=== PATIENT | female | born 1935 | race Caucasian/White ===

== ENCOUNTER 2022-06-24 09:18 | Observation (INO) | payer MEDICARE, OTHER ==
[~2022-06-24] VITALS: Ht 154.9 cm; Wt 52.1 kg
[~2022-06-24 09:18] MED LIST: CELECOXIB100 MG PO; HYDROCODON-ACE1 EA10 PO; LISINOPRIL40 MG PO; POTASSIUM CHLO20 ME2 PO; PRAVASTATIN SOD10 MG PO
--- OUTSIDE RECORDS SUMMARY | 2022-06-24 09:22 | XMS ---
PreManage Notification: SANKET BLAKE Security Nuclear Medicine Officer Events No recent Security Events currently on file CRITERIA MET - [facility] - 2 Visits in 30 Days CARE PROVIDERS IVONNE VILA Casting Machine Set Up Operator Current KENDY MAE Ramila PHONE: [phone] PATRICIA SHAH Internal Medicine Current PHONE: [phone] GAEL BARRIGA Nurse Practitioner: Family Current PHONE: Unknown NETTIE CARRERA Internal Medicine Current PHONE: [phone] ROSIE SZYMANSKI Physician Waistband Setter Lockstitch Current PHONE: [phone] MILI PAN I. Physician Waistband Setter Lockstitch Current PHONE: Unknown DARIO MEZA Nurse Practitioner Current PHONE: Unknown SEBASTIAN MADRIGAL Nurse Practitioner Jarek PERALTA PHONE: [phone] RACHEL [facility] Current PHONE: Unknown [facility] PHONE: [phone] YURIY MAYNARD Physician Waistband Setter Lockstitch Current PHONE: Unknown Fariba has no Care Guidelines for this patient. EJayson VISIT COUNT (12 MO.) 1 [facility] 2 JEREM[facility]AS [facility] TOTAL 3 NOTE: Visits indicate total known visits. ED/UCC VISIT TRACKING (12 MO.) 06/24/2022 09:19 [facility] [place] TYPE: Emergency COMPLAINT: - WEAK, CONFUSION, SHAKY, NO APPETITE 06/06/2022 17:37 [facility] [place] TYPE: Emergency COMPLAINT: - BACK PAIN DIAGNOSES: - Other fpc (current) drug therapy - Unspecified fall, initial encounter - Low back pain, unspecified 02/19/2022 17:38 [facility] Priti RIVERA TYPE: Emergency DIAGNOSES: - Abnormal Lab - Repeated falls - Low Sodium - Urinary tract infection, site not specified - Hypo-osmolality and hyponatremia INPATIENT VISIT TRACKING (12 MO.) [facility] Medical [facility] DIAGNOSES: - Repeated falls - Urinary tract infection, site not specified - Hypo-osmolality and hyponatremia - Acute cystitis without hematuria [email or web address]
[2022-06-24] MEDS ORDERED: DILTIAZEM HCL30 MG PO (12:08)
[2022-06-24] MEDS ORDERED: PRAVASTATIN SOD10 MG PO (15:20)
[2022-06-24] MEDS ORDERED: OXYBUTYNIN CHLOR5 MG PO (15:21)
[2022-06-24] MEDS ORDERED: DICLOFENAC SOD100 G1 TOP (15:23)
[2022-06-24] MEDS ORDERED: LIDOCAINE5 GM TOP (15:26)
[2022-06-24] MEDS ORDERED: CLEARLAX119 GM PO (15:27)
--- NOTE | 2022-06-24 16:00 | NUR ---
86 YR OLD FEMALE PATIENT ADMITTED TO CCU VIA STRETCHER UNDER DR. SPRAGUE WITH DX OF HYPERKALEMIA, WEAKNESS, DIZZINESS. PATIENT HAS HAD INCREASED DIZZINESS OVER THE PAST 2 WEEKS. REPORT RECIEVED FROM MEERA KOROMA IN ER. UPON ADMIT TO CCU PATIENT IS ALERT, IS AWARE OF PERSON, PLACE, TIME. DENIES PAIN. HOWEVER DOES HAVE A HX OF CHRONIC BACK PAIN. IVF HUNG AT 100 ML/HR. LAB HERE TO DRAW BMP. ADMISSION PROCESS STARTED.
--- NOTE | 2022-06-24 17:30 | NUR ---
inc of urine. attends changed. MOVES WELL IN BED.
--- NOTE | 2022-06-24 17:55 | NUR ---
SITTING UP IN BED TO TAKE DINNER, REFUSING DINNER, TAKING ENSURE.
--- NOTE | 2022-06-24 18:20 | NUR ---
LOPRESSOR 2.5 MG IV GIVEN HR 150 UPON GET UP TO COMMODE.
--- NOTE | 2022-06-24 19:16 | NUR ---
SLEEPING, REPORT TO NEXT SHIFT. IVF INFUSING AT 100 ML/HR.
--- NOTE | 2022-06-24 19:23 | EKG ---
[facility] [address] [place], [place] [address] Signed Sinus tachycardia Left axis deviation Inferior infarct , age undetermined Abnormal ECG No previous ECGs available Confirmed by JOHANNA SPRAGUE MD ([id number]) on 06/24/2022 7:23:42 PM Electronically Signed By: JOHANNA SPRAGUE MD 06/24/221922 PATIENT NAME: SANKET BLAKE Electrocardiogram DATE OF : 37 PHYSICIAN: JOHANNA SPRAGUE MD REPORT #: [id number] REPORT IS CONFIDENTIAL AND NOT TO BE RELEASED WITHOUT AUTHORIZATION
--- NOTE | 2022-06-24 19:45 | NUR ---
PT ASSESSED AND FOUND TO BE SLEEPING. PT AWAKENED, IS ALERT AND ORIENTED X 4 WITH A GCS OF 15. PT ABLE TO MOVES ALL EXTREMITIES WITH PURPOSE. CMS INTACT X 4. SAFETY CHECK PERFORMED AND ALARM LIMITS SET. PT WITH NO COMPLAINTS OR CONCERNS AT THIS TIME. NURSE CALL LIGHT PLACED ON PTS BEDSIDE.
--- NOTE | 2022-06-25 07:01 | NUR ---
PT REMAINS AWAKE, ALERT AND ORIENTED WITH SOME GENERALIZED FORGETFULLNESS. PT HAS BEEN IN A NSR TO ST, NORMORTENSIVE AND A-FEBRILE. PT INCONTENENT OF URINE AND FECES MULTIPLE TIMES THROUGHOUT THE NIGHT. PT CLEANED WITH CHG WIPES AND PLACED IN NEW LENINS. LABS: K NORMALIZED AT 5. CREATNINE IMPROVED TO .87.
--- NOTE | 2022-06-25 07:30 | NUR ---
REPORT RECIEVED FROM SET AND EXHIBIT DESIGNER RN. PATIENT RESTING IN BED AT THIS TIME. PRE REPROT PATIENT HAD A GOOD NIGHT OVERALL. PATIENTS POTASSIUM LEVELS CAME DOWN THIS MORNING WITH TREATMENT. WILL CONTINUE TO CLOSELY MONITOR.
--- NOTE | 2022-06-25 08:08 | NUR ---
CALL LIGHT ANSWERED, PATIENT IS INCONTINENT OF URINE AND LIQUID STOOL. PURE WICK REMOVED IT WAS NOT REALLY WORKING PROPERLY WITH THIS PATIENT. NEW BRIEF AND CHUK PROVIDED, PATIENT IVÁN AREA VERY PAINFUL, RN AND STUDENT AWARE. PATIENT NOW SITTING UP FOR BREAKFAST. CALL LIGHT IN EASY REACH
--- NOTE | 2022-06-25 09:03 | NUR ---
THIS RN AND STUDENT RN IN TO DO MORNING ASSESSMENT AND GIVE AM MEDICATIONS. PATIENT REPOSITIONED IN BED WITH PILLOW SUPPORT. PATIENT HAS A DECREASED APPETITE. PATIENT SWOLLOWED MEDICATION OKAY THIS AM. PLAN OF CARE REVIEWED WITH MD SPRAGUE. PATIENT IS OVERALL BETTER AND WILL TRANSFER TO THE MEDICAL UNIT. PATIENT REMIANS VERY WEAK AND WILL NEED PHYSICAL THERAPY TODAY TO TREAT AND EVAL. PATIENTS DAUGHTER IN THE ROOM AND UPDATED ON PLAN OF CARE. PER PATIENTS DAUGHTER SHE FEELS SHE IS UNSAFE TO GO HOME AND HAD QUESTIONS ABOUT REHAB. CASE MANAGEMENT NOTIFIED. WILL CONTINUE TO CLOSELY MONTIOR.
--- NOTE | 2022-06-25 10:35 | NUR ---
INTO PATIENT ROOM WITH JAMIE KOROMA. PATIENT WORKING WITH PT TO GET UP TO THE CHAIR. PATIENT DAUGHTER VESTA AT BEDSIDE. VESTA REQUESTING REFERRAL SENT TO [facility] FOR PT PLACEMENT THE PATIENT HAS BEEN THERE IN THE PAST. CURRENTLY THE PATIENT IS LIVING IN A [place]UP[place] APARTMENT. HER GRANDDAUGHTER WILVER LIVE IN THE OTHER SIDE OF THE DUPLEX. VESTA STATES THAT OVER THE PAST FEW MONTHS THE PATIENT HAS BECOME DECONDITIONED AND IS REQUIRING MORE CARE. PATIENT GRANDDAUGHTER WILL BE AVAILABLE TO CARE FOR HER AFTER DISCHARGE FROM A SNF WHEN DISCHARGED. PATIENT HAS WALKER AND WC AT HOME. PATIENT DAUGHTER DECLINES HOUSING OR FINANCIAL NEEDS FOR THE PATIENT AT THIS TIME. DISCUSSED THAT WE WILL SEND CHART TO LAY @ [facility] FOR REVIEW. CHART FAXED.
--- NOTE | 2022-06-25 11:10 | NUR ---
REPORT GIVEN TO LUIS A KOROMA AT THE BEDSIDE. NEW IV STARTED PRIOR TO PATIENT TRANSFER. PATIENT TOLERATED WELL. PATIENT TRANSFERED IN HER CHAIR AND TOLERATED WELL. NO OTHER QUESTIONS AT THIS TIME.
--- NOTE | 2022-06-25 11:15 | NUR ---
PT. ARRIVED VIA CHAIR AND REPORT RECIEVED AT BEDSIDE. RN STATES PT. IS SOILED AND TO CHANGE HER. PT. FOUND TO HAVE AN OPEN STAGE 2 PRESSURE INJURY ON COCCYX THAT IS NOT DRESSED. AREA CLEANSED AND ALLEVYN APPLIED. IVÁN AREA IS REDDENED AND AND BARRIER CREAM APPLIED. PT C/O DIZZINESS AND BEING SHAKY WITH SITTING UP. VITALS STABLE AND BLOOD GLUCOSE WAS 103. MD UPDATED. WILL CONTINUE TO MONITOR. DISCUSSED SAFETY, POC AND CALL LIGHT. DIET ORDER CHANGED AND LACTOSE INTOLERANT ADDED PER PT. REQUEST.
--- NOTE | 2022-06-25 12:20 | NUR ---
ROUNDING ON PT. SHE STATES SHE IS NOT HUNGRY FOR LUNCH. BROUGHT CLEAR ENSURE AND PUDDING. DENIES FURTHER NEEDS. LEFT WITH CALL LIGHT IN REACH.
--- NOTE | 2022-06-25 13:25 | NUR ---
ROUNDING ON PT. SHE DENIES PAIN OR DIZZINESS. ADMIN MED. DAUGHTER AT BEDSIDE. BROUGHT ENSURE AND WATER. CALL LIGHT IN REACH.
--- NOTE | 2022-06-25 14:30 | NUR ---
PT. HAS AN INCONTINENT LOOSE BM. 2PA WITH FWW TO BED. PT. CLEANED AND CHANGED. NEW ALLEVYN APPLIED TO COCCYX AREA. ASSESSMENT COMPLETED. BROUGHT ICE. CALL LIGHT IN REACH.
[2022-06-25] MEDS ORDERED: 8HR ARTHRITIS650 M1 PO (15:36)
[2022-06-25] MEDS ORDERED: HYDROCODON-ACE1 EA10 PO (15:36)
[2022-06-25] MEDS ORDERED: SODIUM CHLORI1000 MG PO (15:37)
[2022-06-25] MEDS ORDERED: CALCIUM500 MG PO (15:38)
--- NOTE | 2022-06-25 15:41 | NUR ---
MED REC COMPLETE
--- NOTE | 2022-06-25 18:31 | NUR ---
PT. IN BED WITH EYES CLOSED. AWAKENS EASILY TO VOICE. POOR APPETITE. VITALS TAKEN. LEFT RESTING WITH CALL LIGHT IN REACH.
--- NOTE | 2022-06-25 19:20 | NUR ---
Received bedside report from offgoing shift, hourly rounding initiated
--- NOTE | 2022-06-25 20:31 | NUR ---
In pt room for rounding. pt resting on back, eyes closed, breathing even and unlabored, no indication of pain or discomfort, call light in reach.
--- NOTE | 2022-06-25 22:19 | NUR ---
IN PT ROOM FOR ROUNDING. PT RESTING ON BACK, EYES CLOSED, CALL LIGHT IN REACH, NO COMPLAINT OR INDICATION OF PAIN OR DISCOMFORT.
--- NOTE | 2022-06-26 | NUR ---
In pt room for rounding. Pt resting on back, eyes closed, breathing even and unlabored, call light in reach
--- NOTE | 2022-06-26 02:12 | NUR ---
In pt room for rounding. Pt resting on back, eyes closed, breathing even and unlabored, call light in reach, no complaint of pain or discomfort.
--- NOTE | 2022-06-26 03:44 | NUR ---
IN pt room for rounding, checked pt brief and changed. Pt had no complaint of pain or discomfort, call light in reach.
--- NOTE | 2022-06-26 05:47 | NUR ---
IN pt room for rounding. Pt resting on back, eyes closed, breathing even and unlabored, call light in reach no complaint of pain or discomfort
--- NOTE | 2022-06-26 08:30 | NUR ---
REPORT RECEIVED FROM NIGHT RN AND PT. CARE RESUMED. PT. IS ALERT AND ORIENTED TO ALL. SHE REPORTS MILD TENDERNESS IN LOWER ABDOMEN WITH PALPATION. REFUSES BREAKFAST BUT DRINKING CLEAR ENSURE. ASSESSMENT COMPLETED. BREA IN THE ROOM. PT. AMBULATED WITH FWW AND 1PA TO CHAIR. DISCUSSED POC AND MEDS. LEFT RESTING WITH CALL LIGHT IN REACH.
--- NOTE | 2022-06-26 08:55 | NUR ---
PER LAY AT [facility] PATIENT ACCEPTED TO SNF. THEY WOULD LIKE PATIENT TO ARRIVE PRIOR TO 1300.
[2022-06-26] MEDS ORDERED: CEPHALEXIN250 MG PO (09:18)
[2022-06-26] MEDS ORDERED: HYDROCODON-ACE1 EA10 PO (09:23)
--- NOTE | 2022-06-26 10:14 | NUR ---
UPDATED FAMILY THAT [facility] HAS A BED OPEN.PATIENT WILL BE ABLE TO GO TO [facility] AT 1300 TODAY BY WHEELCHAIR VAN. PATIENT AND FAMILY HAPPY ABOUT PLACEMENT AT [facility].
--- NOTE | 2022-06-26 12:00 | NUR ---
PT. ASSISTED WITH REPOSITIONING WITH PILLOWS. MEDS ADMIN. SHE REFUSES LUNCH AND GIVEN ENSURE. CALL LIGHT IN REACH.
--- NOTE | 2022-06-26 12:37 | NUR ---
IV REMOVED WNL AND CATH INTACT. PER VERBAL ORDER TELEMETRY REMOVED AND PT. DRESSED. BRIEF DRY. AWAITING TRANSPORT. REPORT CALLED TO FACILITY.
== END 2022-06-26 12:53 ==
LOC: ED 09:18 → CCU 09:20 → MS 06-25 11:00
PROVIDERS: ADMIT Internal Medicine; ATTEND Internal Medicine
DX: E87.5 Hyperkalemia (principal); N39.0 Urinary tract infection, site not specified; G89.29 Other chronic pain; M54.9 Dorsalgia, unspecified; R42 Dizziness and giddiness; I48.0 Paroxysmal atrial fibrillation; I10 Essential (primary) hypertension; E78.5 Hyperlipidemia, unspecified; Z20.822 Contact with and (suspected) exposure to COVID-19
CPT/HCPCS: 36415; 80048; 80053; 81001; 83735; 84484; 85025; 87077; 87088; 87186; 87502; 93005; 93010; 96374; 96376; 97162; A9270; C9803; G0378; J0696; J1815; J7030; U0003

== ENCOUNTER 2024-09-11 11:01 | Emergency (ER) | payer MEDICARE, OTHER ==
[~2024-09-11] VITALS: Ht 154.9 cm; Wt 64.7 kg
[~2024-09-11 11:01] MED LIST changes: +8HR ARTHRITIS650 M1 PO; +ACIDOPHILUS1 EACH PO; +AMOX TR-K CLV1 EACH PO; +AZITHROMYCIN250 MG PO; +CALCIUM500 MG PO; +CEPHALEXIN250 MG PO; +CLEARLAX119 GM PO; +DICLOFENAC SOD100 G1 TOP; +DILTIAZEM HCL30 MG PO; +IMODIUM A-D2 M2 PO; +LIDOCAINE5 GM TOP; +MEMANTINE HCL10 MG PO; +MIRTAZAPINE7.5 MG PO; +OXYBUTYNIN CHLOR5 MG PO; +SODIUM CHLORI1000 MG PO
[2024-09-11 11:22] LABS: BASOPHILS 0.4 % (0-2); EOSINOPHILS 0.4 % (0-6); HEMATOCRIT 40.3 % (35.0-50.0); HEMOGLOBIN 13.9 g/dL (12.0-18.0); LYMPHOCYTES 20.5 % (24-44); MCH 31.3 (27-36); MCHC 34.5 g/dl (30-36); MCV 90.6 fl (81-99); MONOCYTES 9.8 % (0-12); NEUTROPHILS 68.9 % (39-80); PLATELET COUNT 331 K/uL (140-440); RBC 4.45 M/ul (4.3-5.7)
[2024-09-11 11:41] LABS: ALBUMIN 3.5 g/dL (3.4-5.0); ALBUMIN/GLOBULIN RATIO 0.8 (1.1-2.4); ANION GAP 17.8 (7-21); BILIRUBIN, TOTAL 1.6 mg/dL (0.2-1.0); BUN/CREATININE RATIO 20.98 (6.0-28.6); CALCIUM 9.4 mg/dL (8.5-10.1); CREATININE, SERUM 0.81 mg/dL (0.55-1.02); POTASSIUM 3.8 mmol/L (3.5-5.1); PROTEIN, TOTAL 7.9 g/dL (6.4-8.2)
[2024-09-11] MEDS ORDERED: HYDROCODONE/ACETA 5/325 TAB PO ONE (13:00)
[2024-09-11 14:14] LABS: BILIRUBIN, URINE NEGATIVE (negative); BLOOD/HGB, URINE TRACE-I (Negative); KETONE, URINE SMALL (Negative); LEUK ESTERASE, URINE LARGE (negative); NITRITE, URINE POSITIVE (negative)
[2024-09-11 14:20] LABS: RED BLOOD CELLS, URINE 0-1 /hpf (0-5)
[2024-09-11 14:21] LABS: CASTS, URINE NONE SEEN \\lpf; COLLECTION TYPE, URINE CLEAN CATCH; EPITHELIAL CELLS, URINE SQUAMOUS 3+ /lpf (0-1+); REFLEX CULTURE, URINE No (No)
[2024-09-11 14:22] LABS: CRYSTALS, URINE TRIPLE PHOSPHATE 2+ (0-1+)
[2024-09-11 14:23] LABS: BACTERIA, URINE 3+ /hpf (negative)
[2024-09-11 14:48] LABS: AMPHETAMINES, URINE NEGATIVE (NEGATIVE); BARBITURATES, URINE NEGATIVE (NEGATIVE); BENZODIAZEPINE, URINE NEGATIVE (NEGATIVE); BUPRENORPHINE, URINE NEGATIVE (NEGATIVE); CANNABINOID, URINE NEGATIVE (NEGATIVE); COCAINE, URINE NEGATIVE (NEGATIVE); ECSTASY, URINE NEGATIVE (NEGATIVE); FENTANYL, URINE NEGATIVE (NEGATIVE); METHADONE, URINE NEGATIVE (NEGATIVE); OPIATES, URINE POSITIVE (NEGATIVE); OXYCODONE, URINE NEGATIVE (NEGATIVE); PHENCYCLIDINE, URINE NEGATIVE (NEGATIVE)
[2024-09-11 15:51] VITALS: BP 132/62
--- NOTE | 2024-09-11 17:50 | EKG ---
[facility] [address] [place] [place] [id number] Signed Sinus bradycardia with sinus arrhythmia Left axis deviation Minimal voltage criteria for LVH, may be normal variant ( Johnathan product ) Abnormal ECG When compared with ECG of 10-NOV-2023 13:28, premature supraventricular complexes are no longer present Vent. rate has decreased BY 32 BPM Confirmed by Bulmaro Wayne DO ([id number]) on 09/11/2024 5:50:29 PM Electronically Signed By: BULMARO WAYNE DO 09/11/24 1750 PATIENT NAME: SANKET BLAKE Electrocardiogram DATE OF : 37 PHYSICIAN: BULMARO WAYNE DO REPORT #: [id number] REPORT IS CONFIDENTIAL AND NOT TO BE RELEASED WITHOUT AUTHORIZATION
== END 2024-09-11 15:52 | disposition home or self-care (01) ==
LOC: ED 11:01
PROVIDERS: Emergency Medicine
DX: N39.0 Urinary tract infection, site not specified (principal); M19.031 Primary osteoarthritis, right wrist; I10 Essential (primary) hypertension; I48.91 Unspecified atrial fibrillation; Z96.0 Presence of urogenital implants; Z79.899 Other long term (current) drug therapy
CPT/HCPCS: 36415; 71045; 73110; 80053; 80307; 81001; 84484; 85025; 93005; 93010; 99285-25; A4311